=== PATIENT | male | born 1975 | race African-American/Black ===

== ENCOUNTER 2018-11-04 06:56 | Day surgery (SDC) | payer OTHER ==
[~2018-11-04] VITALS: Ht 165.1 cm; Wt 71.4 kg
[2018-11-04] VITALS (7 sets, daily range): BP systolic 98–112; BP diastolic 64–80; PULSE 61–68; RESP 12–37; Ht 165.1 cm; Wt 71.4 kg
[2018-11-04] MEDS ORDERED: VANCOMYCIN 1 GM 250 ML IVPB ONE (07:00)
[2018-11-04] MEDS ORDERED: DEXAMETHASONE 4 MG/ML 1 ML INJ ONE (09:53)
[2018-11-04] MEDS ORDERED: BUPIVACAINE 0.5% (SDV) 30 ML INJ ONE (09:53)
[2018-11-04] MEDS ORDERED: TRIAMCINOLONE ACET 40 MG/ML INJ ONE (09:53)
[2018-11-04] MEDS ORDERED: LIDOCAINE 2% (MDV) 20 ML INJ ONE (09:53)
--- NOTE | 2018-11-04 09:54 | HPN ---
Date/Time of Note Date/Time of Note DATE: 11/04/18 TIME: 09:53 Interval H&P Admission Note Pt. seen H&P reviewed: No system changes INFORMED CONSENT GIVEN TO PT. PT AGREES TO SX. RISK, BENEFITS AND COMPLICATIONS OF SX HAS BEEN D/W HIM IN DETAIL. MAY HAVE RECURRENCE OF STM TO THE FOOT. ANGIE CEJA DPM Nov 04, 2018 09:54
--- NOTE | 2018-11-04 09:55 | SIPON ---
Date/Time of Note Date/Time of Note DATE: 11/04/18 TIME: 09:54 Operative Report Preoperative Diagnosis STM LEFT HEEL Postoperative Diagnosis STM LEFT HEEL Operation/Procedure Performed EXCISION OF STM LEFT HEEL. Surgeon see signature line corporate law assistant none Anesthesia: MAC Estimated blood loss: none Transfusion Required none Specimen STM Grafts/Implants none Complications none ANGIE CEJA DPM Nov 04, 2018 09:55
--- NOTE | 2018-11-04 10:03 | PREAC ---
Date/Time of Note Date/Time of Note DATE: 11/04/18 TIME: 10:01 Anesthesia Eval and Record Evaluation Time Pre-Procedure Interview DATE: 11/04/18 TIME: 10:01 Age 43 Sex male NPO: 8 hrs Preoperative diagnosis LEFT FOOT MASS Planned procedure EXCISION LUMP MASS lle Past Medical History Past Medical History: None Surgery & Anesthesia Issues No known issue Meds Anticoagulation: No Beta Judi within 24 hr: No Reason Beta Judi not given: Pt. not on B-Judi No Active Prescriptions or Reported Meds Meds reviewed: Yes Allergies Coded Allergies: No Known Allergy (Unverified , 11/04/18) Allergies Reviewed: Yes Labs/Studies Labs Reviewed: Reviewed by anesthesiologist test: N/A Studies: ECG (N/A), CXR (N/A) Pre-procedure Exam Last vitals Vital Signs Date Temp Pulse Resp B/P (MAP) Pulse Ox O2 O2 Flow FiO2 Time Delivery Rate 11/04/18 96.7 68 18 112/80 98 Room Air 09:41 (91) Airway: Adequate mouth opening Mallampati: Mallampati I Teeth: Normal Lung: Normal Heart: Normal ASA Physical Status ASA physical status: 1 Emergency: None Planned Anesthetic General/MAC: LMA, TIVA Planned Pain Management Parenteral pain med Pre-operative Attestations Prior to commencing anesthesia and surgery, the patient was re-evaluated, there was verification of: *The patient's identity *The results of appropriate recent lab work and preoperative vital signs *The above evaluation not changing prior to induction *Anesthetic plan, risk benefits, alternative and complications discussed with patient/family; questions answered; patient/family understands, accepts and wishes to proceed. BLAS HENSLEY MD Nov 04, 2018 10:03
[2018-11-04] MEDS ORDERED: FENTAnyl 50 MCG/ML VIAL ONE (10:11)
[2018-11-04] MEDS ORDERED: PROPOFOL 20 ML ONE (10:11)
[2018-11-04] MEDS ORDERED: DIPHENHYDRAMINE 50 MG INJ IV PRN (10:30)
[2018-11-04] MEDS ORDERED: ONDANSETRON 4 MG INJ IV PRN (10:30)
[2018-11-04] MEDS ORDERED: OXYCODONE/ACETAMINOPHEN (5/325) TAB PO PRN ×2 (10:30)
[2018-11-04] MEDS ORDERED: HYDROmorphONE 1 MG/5 ML IV SYRINGE IV PRN ×3 (10:30)
[2018-11-04] MEDS ORDERED: MEPERIDINE 25 MG INJ IV PRN (10:30)
[2018-11-04] MEDS ORDERED: CEFAZOLIN 1 GM INJ ONE (10:45)
--- NOTE | 2018-11-04 11:14 | NUR ---
PACU NOTES AWAKE AND ALERT, ICE PACK APPLIED, ELEVATED LEG WITH PILLOW ; CALLED SURGERY WAITING ROOM AND ADVISED TO MEET PATIENT IN SDS
--- NOTE | 2018-11-04 13:31 | NUR ---
PT TRANSFER FROM PACU AT 1116. DENIES PAIN AND NAUSEA. L. FOOT DSG CDI. PT GIVEN BOOT, SHOE AND CRUTCHES. D/C TEACHING DONE AND INSTRUCTIONS GIVEN. FRIEND COMING TO GET PT.
--- NOTE | 2018-11-05 00:58 | PAC ---
Date/Time of Note Date/Time of Note DATE: 11/05/18 TIME: 00:58 Post-Anesthesia Notes Post-Anesthesia Note Last documented vital signs Vital Signs Date Temp Pulse Resp B/P (MAP) Pulse Ox O2 O2 Flow FiO2 Time Delivery Rate 11/04/18 97.6 61 18 107/64 98 11:16 (78) 11/04/18 Room Air 11:14 Activity: WNL Respiratory function: WNL Cardiovascular function: WNL Mental status: Baseline Pain reasonably controlled: Yes Hydration appropriate: Yes Nausea/Vomiting absent: No BLAS HENSLEY MD Nov 05, 2018 00:58
--- NOTE | 2018-11-21 00:28 | OPR ---
DATE OF OPERATION: 11/04/2018 PREOPERATIVE DIAGNOSES: 1. Soft tissue mass, left heel. 2. Pain, left heel. POSTOPERATIVE DIAGNOSES: 1. Soft tissue mass, left heel. 2. Pain, left heel. PROCEDURE: Excision of soft tissue mass, left heel. SURGEON: Sven Ceja DPM. DRESSMAKER OR TAILOR: None. ANESTHESIA: Local with IV sedation. COMPLICATIONS: None. ESTIMATED BLOOD LOSS: Less than 1 mL. INDICATION FOR PROCEDURE: The patient with left heel pain for some time now which has remained recal citrant to conservative management. Therefore, the patient opted to undergo surgical management of t he left heel mass. Possible recurrence of soft tissue mass to the left heel advised to him in detail . Risks of surgery also advised to him in detail including nonhealing and delayed healing. The april ent accepted surgical complications of the mass. DESCRIPTION OF PROCEDURE: The patient was brought to the OR and placed on the OR table in a supine p osition. Anesthesia achieved, local anesthetic block of 0.5% Marcaine and 2% plain lidocaine given t o the left ankle. The left foot and ankle was then prepped and draped in the usual sterile fashion. Left ankle pneumatic tourniquet was then inflated. The pressure of the left ankle pneumatic tourniq uet was set at 250 mmHg. Attention was directed to the lateral aspect of the left heel. Using a #15 blade, an incision was cr eated over the mass. Incision was carefully carried down over the soft tissue mass. Neurovascular b undle was retracted. Using sharp and blunt dissection, the mass was then excised in toto down to the level of deep fascia. The mass was excised and submitted to pathology. No residual mass was noted to the area. Next, the area was copiously irrigated. Using 4-0 Vicryl, deep tissue was reapproximat ed. Using 4-0 Prolene, the skin was reapproximated. Postop dressing was applied to the left lower e xtremity using Betadine-soaked Adaptic and Coban. The tourniquet was deflated and the capillary refill time to all toes was instantaneous. The patient was taken to recovery room with vital signs stable. The patient was given postop instructions, advi sed to follow up with me with any chills, fever, chest pain or shortness of breath. Dictated By: SVEN CEJA DPM /NTS Conf#: [id number] DID#: [id number]
== END 2018-11-04 13:12 | disposition home or self-care (01) ==
LOC: SDS 06:56
PROVIDERS: ATTEND Podiatrist Foot & Ankle Surgery
DX: D23.72 Other benign neoplasm of skin of left lower limb, including hip (principal)
CPT/HCPCS: 28043; 88307; J0690; J1100; J3010; Z7512; Z7610